=== PATIENT | female | born 1990 | race Caucasian/White ===

== ENCOUNTER 2018-02-12 15:58 | Emergency (ER) | END 2018-02-12 19:37 | disposition home or self-care (01) ==

== ENCOUNTER 2018-03-04 12:15 | Emergency (ER) | END 2018-03-04 13:15 | disposition home or self-care (01) ==

== ENCOUNTER 2018-03-06 12:21 | Emergency (ER) | END 2018-03-06 15:41 | disposition home or self-care (01) ==

== ENCOUNTER 2018-03-07 10:19 | Emergency (ER) | END 2018-03-07 10:40 | disposition home or self-care (01) ==